=== PATIENT | female | born 1970 | race Caucasian/White ===

== ENCOUNTER → 2016-09-30 | Outpatient (CLI) | payer OTHER ==
--- NOTE | 2016-09-30 10:32 | KCIC ---
Bilateral digital screening mammograms: Reason for examination: Routine screening. Comparison is made to previous studies dated 09/30/2014 and 05/30/2013. The skin and nipples show no abnormalities. No abnormal axillary lymph nodes are seen. Bilateral breast implants remain in place. The breast parenchyma is extremely dense. (Breast density: Category D.) There are no dominant masses, suspicious calcifications or architectural distortion. Impression: No evidence of malignancy. Recommend routine screening. Your patient's mammogram demonstrates that she has dense breast tissue (breast density category C or D), which could hide abnormalities, and if she has other risk factors for breast cancer that have been identified, she might benefit from supplemental screening tests that may be suggested by you as her ordering physician. Dense breast tissue, in and of itself, is a relatively common condition. Therefore, this information is not provided to cause undue concern, but rather to raise your awareness and to promote discussion with your patient regarding the presence of other risk factors, in addition to dense breast tissue. Your patient's mammography results will be sent to her. BI-RAD Category 1: Negative. "Our facility is accredited by the [employer] Mammography Program." This patient's information has been entered into a reminder system for the patient to be notified with the results of her examination and a target date for the next mammogram. Electronically signed by: Luna Díaz MD (09/30/2016 10:29 AM) [id number]
--- NOTE | 2016-09-30 13:04 | KCIC ---
PELVIS W/TV History: Left lower quadrant pelvic pain Comparison: August 12, 2015 Findings: Multiple transabdominal sonographic images of the pelvis are submitted. No free fluid is demonstrated. Ovaries are not seen. Uterus is visualized. Transvaginal ultrasound: Multiple transvaginal sonographic images of the pelvis are submitted. Uterus measured 8.4 x 3.9 x 5.3 cm. Right ovary measured 1.8 x 2.6 x 1.8 cm, normal low resistance vascularity. No free fluid is demonstrated. Endometrium measured up to 0.9 cm, not associated with hypervascularity. Left ovary measured 3.1 x 2.4 x 2.2 cm. There is focus of heterogeneous hypoechogenicity of the left ovary with some vascularity at the periphery, overall dimension 2.5 x 2 x 2 cm. There is normal low resistance vascularity of the left ovary. Impression: 1. There is focus of abnormal hypoechogenicity of the left ovary, possibly a complex cyst up to 2.5 cm although increased vascularity at the periphery and somewhat thick wall. Correlation with test is advised if this has not been performed to ensure patient is not . Short-term follow-up such as in 2-3 months is advised. No free fluid is demonstrated. Electronically signed by: Ba Rivas MD (09/30/2016 1:00 PM) [id number]
== END | disposition home or self-care (01) ==
LOC: KCIC US 09:07
PROVIDERS: ATTEND Obstetrics & Gynecology
DX: Z12.31 Encounter for screening mammogram for malignant neoplasm of breast (principal); R10.2 Pelvic and perineal pain
CPT/HCPCS: 76830; 76856; G0202; 77067

== ENCOUNTER → 2016-10-28 | Outpatient (CLI) | payer OTHER ==
--- NOTE | 2016-10-28 10:35 | KCIC ---
Examination: Ultrasound pelvis HISTORY: History of follow up left ovarian cyst. COMPARISON: 08/12/2015 TECHNIQUE: Transabdominal, transvaginal ultrasound examination was performed FINDINGS: The uterus measures 7.9 x 4.0 x 4.4 cm. The endometrium measures 7.9 mm in thickness. The right ovary measures 4.4 x 2.8 x 3.3 cm. There is a cystic structure identified in the right ovary containing some echogenicities within, measuring 2.6 cm. Blood flow identified in the right ovary. The left ovary measures 2.7 x 1.5 x 2.6 cm The cystic structure seen on the prior exam in the left ovary is not identified on today's examination. Blood flow identified in the left ovary. IMPRESSION: 1. The previously visualized cyst in the left ovary is no longer visualized. 2. 2.6 cm cystic structure identified in the right ovary contains some echogenicity within could be a collapsed cyst or follicle. Electronically signed by: Amando Buitrago MD (10/28/2016 10:32 AM) [id number]
== END | disposition home or self-care (01) ==
LOC: KCIC US 08:45
PROVIDERS: ATTEND Obstetrics & Gynecology
DX: N83.201 Unspecified ovarian cyst, right side (principal); N83.202 Unspecified ovarian cyst, left side
CPT/HCPCS: 76830; 76856